=== PATIENT | male | born 1995 | race Caucasian/White ===

== ENCOUNTER 2019-06-26 16:51 | Emergency (ER) | payer BC ==
[2019-06-26 17:27] VITALS: BP 116/62
--- NOTE | 2019-06-26 17:31 | UC ---
Ear Complaint HPI - HPI Summary HPI Summary: Per car deliverer: "left ear pain for past week, worsening over past few days" -has tried OTC allerrgy meds but sx progerssing. nsaids have helped the pain a little. 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 hernia repair as infant - Family History Known Family History: Positive: Non-Contributory - Social History Alcohol Use: None Substance Use Type: None Smoking Status (MU): Never Smoked Tobacco Review of Systems All Other Systems Reviewed And Are Negative: Yes Constitutional: Positive: Negative. Negative: Fever, Chills, Fatigue Skin: Positive: Other - rt ear canal chronic skin/ear issues Eyes: Positive: Negative ENT: Positive: Ear Ache - + wax like d/c. Respiratory: Positive: Negative. Negative: Shortness Of Breath, Cough Cardiovascular: Positive: Negative. Negative: Palpitations, Chest Pain Gastrointestinal: Positive: Negative Motor: Positive: Negative Neurovascular: Positive: Negative Musculoskeletal: Positive: Negative Neurological: Positive: Negative Psychological: Positive: Negative Is Patient Immunocompromised?: No Physical Exam Triage Information Reviewed: Yes Appearance: Well-Appearing, No Pain Distress, Well-Nourished - very pleasant, good historian. Vital Signs: Initial Vital Signs Temp 98.3 F 06/26/19 17:24 Pulse 62 06/26/19 17:24 Resp 17 06/26/19 17:24 BP 116/62 06/26/19 17:24 Pulse Ox 98 06/26/19 17:24 Vital Signs Reviewed: Yes Eye Exam: Normal ENT: Positive: Other - right canal w/ erytehamatous non-blanching skin. left canal: mild tendernss at trigus. thick/purulent d/c anterior to TM w/ erythematous/retracted TM. no pain at helix or anti-helix Dental Exam: Normal Neck exam: Normal Neck: Positive: Supple, Nontender, No Lymphadenopathy Respiratory Exam: Normal Respiratory: Positive: Lungs clear, Normal breath sounds, No respiratory distress, No accessory muscle use. Negative: Crackles, Rhonchi, Stridor Cardiovascular Exam: Normal Cardiovascular: Positive: RRR Musculoskeletal Exam: Normal Neurological Exam: Normal Psychological Exam: Normal Skin Exam: Normal Ear Complaint Course/Dx - Course Course Of Treatment: Left AOM and external otitis most likely. exam is somehwat distored d/t discharge presnet. - Differential Dx/Diagnosis Differential Diagnosis/HQI/PQRI: Otitis Externa, Otitis Media Provider Diagnosis: Otitis media, Otitis externa Discharge ED - Sign-Out/Discharge Documenting (check all that apply): Patient Departure All imaging exams completed and their final reports reviewed: No Studies - Discharge Plan Condition: Stable Disposition: HOME Prescriptions: Amoxicillin/Clavulanate TAB* [Augmentin TAB 875*] 875 mg PO BID #20 tab Neomyc/Polym/HC 1% OTIC SUSP* [Cortisporin Otic Susp 1%*] 4 drop LEFT EAR QID 10 Days #1 btl Patient Education Materials: Otitis Externa (ED), Ear Infection (ED) Referrals: No Primary Care Phys,NOPCP [Primary Care Provider] - [facility] [place] [facility] [Outside] Reji Browning MD [Medical Doctor] - Ashvin Abreu MD [Medical Doctor] - Additional Instructions: There is evidence that you have an inner ear infection and probably an outer ear infection. -please take the augmentin twice pre day x 10 days and ear drops for 10 days. It is recommended that you take a priobiotic daily while you are on antibiotics. A few common brands that you can buy over the counter are colon health, align and florastor. These can help prevent a colon infection called c diff that can be associated with antibiotic use. -There are 2 ENT doctors listed that you can follow up with based on your convenience as we discussed today. - Billing Disposition and Condition Condition: STABLE Disposition: Home
== END 2019-06-26 18:04 | disposition home or self-care (01) ==
LOC: UCCORT 16:51
DX: H66.92 Otitis media, unspecified, left ear (principal); H60.92 Unspecified otitis externa, left ear
CPT/HCPCS: 99202; G0463

== ENCOUNTER 2019-12-14 10:33 | Emergency (ER) | payer BC ==
[2019-12-14 11:08] VITALS: BP 117/71
[2019-12-14 11:45] LABS: Influenza A Molecular Negative (Negative); Influenza B Molecular Negative (Negative)
--- NOTE | 2019-12-14 11:49 | UC ---
General HPI - HPI Summary HPI Summary: Started last night with fevers, chills, and bodyaches. Cough and congestion. No N/V/D. No appetite but drinking fluids. Works as a mental health counselor. Did have his flu shot. Never needed an inhaler. Non smoker meds; reviewed - History of Current Complaint Chief Complaint: UCGeneralIllness Stated Complaint: FLU SYMP Time Seen by Provider: 12/14/19 11:33 Pain Intensity: 0 - Allergy/Home Medications Allergies/Adverse Reactions: Allergies Allergy/AdvReac Type Severity Reaction Status Date / Time No Known Allergies Allergy Verified 12/14/19 11:04 Home Medications: Home Medications Albuterol HFA INHALER* [Ventolin HFA Inhaler*] 2 puff INH Q4H PRN #1 mdi [Rx] Ibuprofen TAB* [Advil TAB*] 400 mg PO ONCE 12/14/19 [History Confirmed 12/14/19] Spacer/Holding Chamber (NF) [Easivent CHAMBER (NF)] 1 applic INH Q4HR PRN #1 device 12/14/19 [Rx] PMH/Surg Hx/FS Hx/Imm Hx Previously Healthy: Yes - Surgical History Surgical History: Yes Surgery Procedure, Year, and Place: appenedectomy age 9. hernia repair as infant - Family History Known Family History: Positive: Non-Contributory - Social History Alcohol Use: None Substance Use Type: None Smoking Status (MU): Never Smoked Tobacco Review of Systems All Other Systems Reviewed And Are Negative: Yes Constitutional: Positive: Fever, Chills ENT: Positive: Sore Throat, Ear Ache, Nasal Discharge, Sinus Congestion Respiratory: Positive: Cough Physical Exam Triage Information Reviewed: Yes Appearance: Well-Appearing Vital Signs: Initial Vital Signs Temp 98.3 F 12/14/19 11:05 Pulse 101 12/14/19 11:05 Resp 15 12/14/19 11:05 BP 117/71 12/14/19 11:05 Pulse Ox 95 12/14/19 11:05 Vital Signs Reviewed: Yes ENT: Positive: Pharyngeal erythema, Nasal congestion, Other - dry peeling skin around ears b/l. right TM: dull and erythematous, nonbulging. left TM: dull and erythematous. Worse on right. Neck: Positive: Supple, Nontender Respiratory: Positive: Lungs clear, Normal breath sounds, Other: - wheezing sounding cough Cardiovascular: Positive: RRR, No Murmur Course/Dx - Course Course Of Treatment: This is a 24 yr old with a flu-like illness Nontoxic appearing Flu: Negative Plan Your flu test was negative You have a viral illness that is flu-like in nature Continue supportive care Rest, fluids, ibuprofen as needed for pain/fever Can use Dayquil and Nyquil as needed as directed Recommend Albuterol inhaler with spacer as needed for cough If symptoms persist or worsen recommend follow up with PCP or return to urgent care - Diagnoses Provider Diagnosis: Viral syndrome Discharge ED - Sign-Out/Discharge Documenting (check all that apply): Patient Departure All imaging exams completed and their final reports reviewed: No Studies - Discharge Plan Condition: Good Disposition: HOME Prescriptions: Albuterol HFA INHALER* [Ventolin HFA Inhaler*] 2 puff INH Q4H PRN #1 mdi PRN Reason: Cough Spacer/Holding Chamber (NF) [Easivent CHAMBER (NF)] 1 applic INH Q4HR PRN #1 device PRN Reason: Cough Patient Education Materials: Viral Syndrome (ED) Forms: *Work Release Referrals: [facility] [place] [facility] [Outside] No Primary Care Phys,NOPCP [Primary Care Provider] - Additional Instructions: Your flu test was positive You have a viral illness that is flu-like in nature Continue supportive care Rest, fluids, ibuprofen as needed for pain/fever Can use Dayquil and Nyquil as needed as directed Recommend Albuterol inhaler with spacer as needed for cough If symptoms persist or worsen recommend follow up with PCP or return to urgent care - Billing Disposition and Condition Condition: GOOD Disposition: Home
== END 2019-12-14 11:54 | disposition home or self-care (01) ==
LOC: UCCORT 10:33
DX: B34.9 Viral infection, unspecified (principal); J02.9 Acute pharyngitis, unspecified; R09.89 Other specified symptoms and signs involving the circulatory and respiratory systems; R05 Cough; H92.03 Otalgia, bilateral
CPT/HCPCS: 99212; G0463